=== PATIENT | female | born 1960 | race Caucasian/White ===

== ENCOUNTER 2018-04-29 10:34 | Emergency (ER) | payer MEDICARE, MEDICAID ==
[~2018-04-29] VITALS: Ht 165.1 cm; Wt 63.6 kg
[2018-04-29] MEDS ORDERED: LIDOcaine 1.5% w/epinephrine 1:200,000 5ml ampul IJ ONE (11:20)
[2018-04-29] MEDS ORDERED: LIDOcaine 1% w/epiNEPHrine 1:200,000 30ml vial IJ ONE (11:25)
[2018-04-29] MEDS ORDERED: SULF1TAB49 PO (12:00)
[2018-04-29] MEDS ORDERED: CEPH-572 PO (12:00)
[2018-04-29 12:56] VITALS: BP 100/61
== END 2018-04-29 12:58 | disposition home or self-care (01) ==
LOC: ER 10:35
DX: L02.413 Cutaneous abscess of right upper limb (principal)
CPT/HCPCS: 10061; 87070; 87077; 87186; 99284; J3490

== ENCOUNTER 2018-05-07 09:27 | Emergency (ER) | payer MEDICARE, MEDICAID ==
[~2018-05-07] VITALS: Ht 170.2 cm; Wt 63.0 kg
[~2018-05-07 09:27] MED LIST: CEPH-572 PO; SULF1TAB49 PO
[2018-05-07] MEDS ORDERED: normal saline 1000ML IV soln IVB ONE (10:05)
[2018-05-07] MEDS ORDERED: ziprasidone IM 20mg inj **IM only IM ONE (11:20)
[2018-05-07 11:38] LABS: CLARITY,URINE SLIGHTLY CLOUDY (Clear); COLOR,URINE YELLOW (Yellow); GLUCOSE, URINE NEGATIVE (Neg); KETONES,URINE TRACE mg/dl (Neg); LEUKOCYTE ESTERASE ,URINE NEGATIVE (Neg); NITRITES, URINE NEGATIVE (Neg); OCCULT BLOOD,URINE NEGATIVE (Neg); PROTEIN,URINE NEGATIVE (Neg); UROBILINOGEN,URINE 0.2 E.U/dL (0.2-1.0)
[2018-05-07 11:45] LABS: HEMATOCRIT 29.9 % (35.0-45.0); HEMOGLOBIN 9.9 g/dl (12.0-16.0); MEAN CORPUSCULAR HEMOGLOBIN 30.1 PG (27.0-31.0); MEAN CORPUSCULAR HGB CONC 33.2 % (33.0-36.5); MEAN CORPUSCULAR VOLUME 90.6 FL (78-98); MEAN PLATELET VOLUME 6.7 FL (7.4-10.4); PLATELET COUNT 569 X10'3 (140-440); RED CELL DISTRIBUTION WIDTH 14.7 % (11.5-14.5)
[2018-05-07 11:47] LABS: URINE AMPHETAMINE SCREEN NEGATIVE (Neg); URINE BARBITUATE SCREEN NEGATIVE (Neg); URINE BENZODIAZEPINES SCREEN NEGATIVE (Neg); URINE CANNABINOID SCREEN NEGATIVE (Neg); URINE COCAINE SCREEN NEGATIVE (Neg); URINE METHADONE SCREEN NEGATIVE (Neg); URINE OPIATE SCREEN POSITIVE (Neg); URINE PHENCYCLIDINE SCREEN NEGATIVE (Neg)
[2018-05-07 11:48] LABS: UA COLLECTION TYPE STRAIGHT CATH
[2018-05-07 11:52] LABS: BACTERIA,URINE NONE SEEN /HPF (Neg); RBC,URINE NONE SEEN /HPF (0-2); SQUAMOUS EPITHELIAL CELL,UR NONE SEEN /LPF (FEW); URIC ACID CRYSTALS 3+ /HPF (NEGATIVE); WBC,URINE NONE SEEN /HPF (0-4)
[2018-05-07 12:02] LABS: ALANINE AMINOTRANSFERASE 12 U/L (12-78); ALBUMIN/GLOBULIN RATIO 0.3 (1.1-1.5); ALKALINE PHOSPHATASE 86 IU/L (46-116); ANION GAP 9 (8-16); ASPARTATE AMINO TRANSFERASE 36 U/L (10-37); BILIRUBIN,TOTAL 0.2 MG/DL (0.1-1.0); BLOOD UREA NITROGEN 67 MG/DL (7-18); BUN/CREATININE RATIO 24.4 (6.6-38.0); CHLORIDE 95 MMOL/L (99-107); CREATININE 2.75 MG/DL (0.40-0.90); GLUCOSE 67 MG/DL (70-104); POTASSIUM 4.9 MMOL/L (3.5-5.1); SODIUM 134 MMOL/L (135-145); TOTAL CARBON DIOXIDE 29.9 MMOL/L (24-32); eGFR 18 ML/MIN
[2018-05-07 12:05] LABS: LACTIC SEPSIS 1.5 MMOL/L (0.4-2.0)
[2018-05-07 12:06] LABS: AMMONIA < 10 UMOL/L (11-32); TROPONIN I < 0.04 NG/ML (0.0-0.05)
[2018-05-07 12:08] LABS: ETHANOL < 0.010 GM/DL (0.0-0.010)
[2018-05-07 12:17] LABS: WHITE BLOOD COUNT 7.2 X10'3 (4.5-11.0)
[2018-05-07 12:25] LABS: TOTAL CELLS COUNTED 100
[2018-05-07 12:26] LABS: PLATELET ESTIMATE INCREASED; ROULEAUX 1+
[2018-05-07] MEDS ORDERED: normal saline 1000ml 1,000 ML IVB ONE (12:35)
[2018-05-07] MEDS: dextrose 5%-normal saline 1,000 ML IV SCH ×2 (14:30→16:40)
[2018-05-07 16:55] VITALS: BP 95/49
== END 2018-05-07 17:19 ==
LOC: ER 09:28
DX: G30.0 Alzheimer's disease with early onset (principal); N17.9 Acute kidney failure, unspecified; E86.0 Dehydration; Z79.2 Long term (current) use of antibiotics
CPT/HCPCS: 36415; 80053; 80305; 80320; 81001; 82140; 82948; 83605; 84484; 85025; 96360; 96361; 96372; 99285; J3486; J7030; P9612

== ENCOUNTER 2018-09-09 15:37 | Inpatient (IN) | payer MEDICARE, MEDICAID ==
[~2018-09-09] VITALS: Ht 157.5 cm; Wt 58.0 kg
[2018-09-09] MEDS ORDERED: normal saline 1000ML IV soln IVB ONE (16:35)
[2018-09-09] MEDS ORDERED: vancomycin/NS 1 GM ADD-VANTAGE 250 ML IV ONE (17:15)
[2018-09-09] MEDS ORDERED: ceFAZolin 1GM/D5W- ADD-VANTAGE 50 ML IV ONE (17:15)
[2018-09-09] MEDS ORDERED: LORazepam 2 mg/ml vial IM ONE (17:25)
[2018-09-09] MEDS ORDERED: potassium Cl 20 mEq SR tablet PO PRN ×2 (17:30)
[2018-09-09] MEDS ORDERED: magnesium 4gm in 100ml NS 100 ML IV PRN (17:30)
[2018-09-09] MEDS ORDERED: potassium Cl 40MEQ/NS 500ml 500 ML IV PRN ×2 (17:30)
[2018-09-09] MEDS ORDERED: ondansetron/PF 4mg/2ml inj IV PRN (17:30)
[2018-09-09] MEDS ORDERED: magnesium 2GM in 50ml NS 50 ML IV PRN (17:30)
[2018-09-09] MEDS ORDERED: mag hydrox/Alum hydrox/simeth 30ml oral suspension PO PRN (17:30)
[2018-09-09] MEDS ORDERED: morphine 4 MG/ML inj SYRINge IV PRN ×2 (17:30)
[2018-09-09] MEDS ORDERED: acetaminophen 325mg tablet PO PRN (17:30)
[2018-09-09] MEDS ORDERED: magnesium hydroxide 30ml (MOM) UD suspension PO PRN (17:30)
[2018-09-09] MEDS ORDERED: LEVO25TA7 PO (20:47)
[2018-09-09] MEDS ORDERED: GABA600T13 PO (20:47)
[2018-09-09] MEDS ORDERED: CITA10TA9 PO (20:47)
[2018-09-09] MEDS ORDERED: OLAN10TA19 PO (20:47)
[2018-09-09] MEDS ORDERED: VALP250C44 PO (20:47)
[2018-09-09] MEDS ORDERED: PRAV40TA3 PO (20:47)
[2018-09-09] MEDS ORDERED: MELO-102 PO (20:47)
[2018-09-09] MEDS ORDERED: CELE-85 PO (20:47)
--- NOTE | 2018-09-09 22:08 | NUR ---
PT IN ROOM 4018. HAVEN'T RECEIVE REPORT. WILL CALL ER.
[2018-09-09 22:15] VITALS: BP 115/37
[2018-09-10] VITALS (17 sets, daily range): BP systolic 63–124; BP diastolic 34–94
[2018-09-10] MEDS ORDERED: LORazepam 2 mg/ml vial IV ONE (00:55)
[2018-09-10] MEDS: ceFAZolin 1GM/D5W- ADD-VANTAGE 50 ML IV SCH ×4 (01:17→23:58)
[2018-09-10 01:38] LABS: BASOPHILS % (AUTO) 0.4 % (0-1); EOSINOPHILS # (AUTO) 0.1 X10'3 (0-0.9); EOSINOPHILS % (AUTO) 1.4 % (0-6); HEMATOCRIT 28.3 % (35.0-45.0); HEMOGLOBIN 9.4 g/dl (12.0-16.0); LYMPHOCYTES # (AUTO) 1.4 X10'3 (1.1-4.8); LYMPHOCYTES % (AUTO) 31.9 % (21-51); MEAN CORPUSCULAR HEMOGLOBIN 29.7 PG (27.0-31.0); MEAN CORPUSCULAR HGB CONC 33.3 g/dL (33.0-36.5); MEAN CORPUSCULAR VOLUME 89.4 FL (78-98); MEAN PLATELET VOLUME 6.9 FL (7.4-10.4); MONOCYTES # (AUTO) 0.8 X10'3 (0-0.9); MONOCYTES % (AUTO) 19.5 % (2-12); NEUTROPHILS % (AUTO) 46.8 % (42-75); PLATELET COUNT 254 X10'3 (140-440); RED BLOOD COUNT 3.16 X10'6 (4.20-5.60); RED CELL DISTRIBUTION WIDTH 16.9 % (11.5-14.5); WHITE BLOOD COUNT 4.4 X10'3 (4.5-11.0)
[2018-09-10 01:48] LABS: ALANINE AMINOTRANSFERASE 10 U/L (12-78); ALBUMIN 2.1 G/DL (3.4-5.0); ALBUMIN/GLOBULIN RATIO 0.4 (1.1-1.5); ALKALINE PHOSPHATASE 87 IU/L (46-116); ANION GAP 7 (8-16); ASPARTATE AMINO TRANSFERASE 14 U/L (10-37); BILIRUBIN,TOTAL 0.1 MG/DL (0.1-1.0); BLOOD UREA NITROGEN 36 MG/DL (7-18); BUN/CREATININE RATIO 31.3 (6.6-38.0); CALCIUM 9.2 MG/DL (8.5-10.1); CHLORIDE 107 MMOL/L (99-107); CREATININE 1.15 MG/DL (0.40-0.90); GLUCOSE 83 MG/DL (70-104); MAGNESIUM 2.2 MG/DL (1.5-2.4); POTASSIUM 4.2 MMOL/L (3.5-5.1); SODIUM 143 MMOL/L (135-145); TOTAL CARBON DIOXIDE 28.7 MMOL/L (24-32); TOTAL PROTEIN 7.5 G/DL (6.4-8.2); eGFR 48 ML/MIN
--- NOTE | 2018-09-10 06:37 | NUR ---
Problems reprioritized. Patient report given, questions answered & plan of care reviewed with MORTEZA MONTELONGO AND MORTEZA DO.
[2018-09-10 06:45] LABS: PROTHROMBIN TIME 10.4 SECONDS (9.0-12.0)
[2018-09-10] MEDS: enoxaparin 40mg/0.4ml syringe SQ SCH (06:52)
[2018-09-10] MEDS: olanzapine 10mg tablet PO SCH (07:25)
[2018-09-10] MEDS: levoTHYROXINE 25mcg tablet PO SCH (07:25)
[2018-09-10] MEDS: CITALOpram 10mg tablet PO SCH (07:26)
[2018-09-10] MEDS: pravastatin 40mg tablet PO SCH (07:27)
[2018-09-10] MEDS: valproic acid 250mg capsule PO SCH ×2 (07:27→19:40)
[2018-09-10] MEDS: gabapentin 300mg capsule PO SCH ×2 (07:27→19:40)
[2018-09-10] MEDS: K and/or MAG REPLACEMENT MC SCH (08:00)
[2018-09-10] MEDS: ringers solution, lacted 1,000 ML IV SCH (10:50)
[2018-09-10] MEDS ORDERED: sevoflurane 250ml liquid IH ONE (15:42)
[2018-09-10] MEDS ORDERED: propofol inj 20 ML IV ONE (15:44)
[2018-09-10] MEDS ORDERED: fentaNYL/PF 50MCG/1 ML 2ML syringe ONE (15:44)
--- NOTE | 2018-09-10 15:58 | NUR ---
Failed attempts x 2 to left upper arm for extended PIV using ultrasound and 3 nurses to stabilize arm and minimize kicks from patient. Patient uncooperative. Addendum: 09/10/18 at 1601 by Griselda Diez RN Amended: Links added.
[2018-09-10] MEDS ORDERED: ePHEDrine 50MG/ML INJ. ONE (16:05)
[2018-09-10] MEDS ORDERED: ringers solution, lacted 1,000 ML IV SCH (16:46)
[2018-09-10] MEDS ORDERED: ondansetron/PF 4mg/2ml inj IV PRN (16:50)
[2018-09-10] MEDS ORDERED: meperidine/PF 25mg/ml syringe IV PRN ×3 (16:50)
[2018-09-10] MEDS ORDERED: morphine 4 MG/ML inj SYRINge IV PRN ×2 (16:50)
[2018-09-10] MEDS ORDERED: proCHLORperazine 10 MG/2 ml inj IV PRN (16:50)
--- NOTE | 2018-09-10 17:12 | NUR ---
Received from OR via ORTHO BED, accompanied by Anesthesiologist DR RAMSEY and report given by Anesthesiolgist. PT IS S/P I AND D OF RIGHT SHOULDER, GENERAL ANESTH, PT PLACED ON O2 AND MONITOR, PT HAS RIGHT SHOULDER WRAP COVERING DRESSING, WITH ICE PACK IN PLACE, CDI, WOUND VAC ATTACHED WITH 125 MMHG SUCTION, DENIES ANY PAIN OR NAUSEA AT THIS TIME WILL CONT TO ASSESS. GOOD RADIAL PULSES BILAT, WILL CONT TO ASSESS.
[2018-09-10] MEDS ORDERED: HYDROmorphone inj. 0.5 MG/0.5 ML DISP.SYRIN IV PRN (17:25)
[2018-09-10] MEDS ORDERED: oxyCODONE IR 5mg (immed. release) tablet PO PRN (17:25)
--- NOTE | 2018-09-10 18:17 | NUR ---
Problems reprioritized. Patient report given, questions answered & plan of care reviewed with brody PRO.
--- NOTE | 2018-09-10 18:30 | NUR ---
Patient in room ORTHO 4018. I have received report from REGINALDRN AND ERNESTINARN and had the opportunity to ask questions and assume patient care.
[2018-09-10] MEDS: vancomycin/NS 1 GM ADD-VANTAGE 250 ML IV SCH (18:48)
[2018-09-10] MEDS: ketorolac tromethamine 15mg/ml inj. IV SCH (19:40)
[2018-09-10] MEDS: lactobacillus rhamnosus 10,000 MMU CELLS/CAPSULE PO SCH (19:41)
[2018-09-10] MEDS: acetaminophen 325mg tablet PO SCH (19:41)
[2018-09-10] MEDS: potassium cl 20mEq in 1/2 NS 1,000 ML IV SCH (19:43)
[2018-09-11] MEDS ORDERED: normal saline 250ml IV soln 250 ML IV ONE (00:45)
--- NOTE | 2018-09-11 00:46 | NUR ---
AT 2250 PT'S BP 68/38 HR 70, PT WAS ASLEEP. NS BOLUS 259CC GIVEN. @2317 123/78 HR85, @2323 101/70 HR77 PT WAS AWAKE. WILL CONTINUE TO MONITOR.
[2018-09-11] MEDS: acetaminophen 325mg tablet PO SCH ×4 (01:36→20:33)
[2018-09-11] MEDS: ketorolac tromethamine 15mg/ml inj. IV SCH ×3 (01:36→15:53)
[2018-09-11 02:00] VITALS: BP 99/53
[2018-09-11 06:00] VITALS: BP 104/49
[2018-09-11] MEDS: ringers solution, lacted 1,000 ML IV SCH (06:50)
--- NOTE | 2018-09-11 06:53 | NUR ---
Patient in room ORTHO 4018. I have received report from Marlin PRO and had the opportunity to ask questions and assume patient care.
[2018-09-11] MEDS: potassium cl 20mEq in 1/2 NS 1,000 ML IV SCH ×3 (06:55→17:07)
[2018-09-11 07:41] LABS: BASOPHILS % (AUTO) 0.3 % (0-1); EOSINOPHILS # (AUTO) 0.1 X10'3 (0-0.9); EOSINOPHILS % (AUTO) 1.6 % (0-6); HEMATOCRIT 23.4 % (35.0-45.0); HEMOGLOBIN 7.8 g/dl (12.0-16.0); LYMPHOCYTES # (AUTO) 1.5 X10'3 (1.1-4.8); LYMPHOCYTES % (AUTO) 34.9 % (21-51); MEAN CORPUSCULAR HEMOGLOBIN 29.6 PG (27.0-31.0); MEAN CORPUSCULAR HGB CONC 33.2 g/dL (33.0-36.5); MEAN CORPUSCULAR VOLUME 89.3 FL (78-98); MEAN PLATELET VOLUME 6.7 FL (7.4-10.4); MONOCYTES # (AUTO) 0.7 X10'3 (0-0.9); MONOCYTES % (AUTO) 17.2 % (2-12); PLATELET COUNT 249 X10'3 (140-440); RED BLOOD COUNT 2.62 X10'6 (4.20-5.60); RED CELL DISTRIBUTION WIDTH 16.9 % (11.5-14.5); WHITE BLOOD COUNT 4.3 X10'3 (4.5-11.0)
[2018-09-11 07:52] LABS: ALANINE AMINOTRANSFERASE 8 U/L (12-78); ALBUMIN/GLOBULIN RATIO 0.4 (1.1-1.5); ALKALINE PHOSPHATASE 71 IU/L (46-116); ANION GAP 8 (8-16); ASPARTATE AMINO TRANSFERASE 17 U/L (10-37); BILIRUBIN,TOTAL 0.1 MG/DL (0.1-1.0); BLOOD UREA NITROGEN 28 MG/DL (7-18); BUN/CREATININE RATIO 25.9 (6.6-38.0); CALCIUM 8.7 MG/DL (8.5-10.1); CHLORIDE 106 MMOL/L (99-107); CREATININE 1.08 MG/DL (0.40-0.90); GLUCOSE 86 MG/DL (70-104); POTASSIUM 4.2 MMOL/L (3.5-5.1); SODIUM 141 MMOL/L (135-145); TOTAL CARBON DIOXIDE 26.6 MMOL/L (24-32); eGFR 52 ML/MIN
[2018-09-11] MEDS: levoTHYROXINE 25mcg tablet PO SCH (08:00)
[2018-09-11] MEDS: CITALOpram 10mg tablet PO SCH (08:00)
[2018-09-11] MEDS: valproic acid 250mg capsule PO SCH ×2 (08:00→20:33)
[2018-09-11] MEDS: gabapentin 300mg capsule PO SCH ×2 (08:00→20:33)
[2018-09-11] MEDS: olanzapine 10mg tablet PO SCH (08:00)
[2018-09-11] MEDS: pravastatin 40mg tablet PO SCH (08:00)
[2018-09-11] MEDS: lactobacillus rhamnosus 10,000 MMU CELLS/CAPSULE PO SCH ×2 (08:00→20:33)
[2018-09-11] MEDS: K and/or MAG REPLACEMENT MC SCH (08:00)
--- NOTE | 2018-09-11 08:00 | NUR ---
unable to give patient medications and assess, patient is very combative and restistant to care, will continue to monitor and tyr again later
[2018-09-11] MEDS: enoxaparin 40mg/0.4ml syringe SQ SCH (08:38)
[2018-09-11] MEDS: ceFAZolin 1GM/D5W- ADD-VANTAGE 50 ML IV SCH ×3 (08:40→23:08)
[2018-09-11] MEDS: haloperidol lactate 5mg/ml inj IM PRN (09:13)
[2018-09-11 10:00] VITALS: BP 109/57
[2018-09-11 14:06] LABS: HEMATOCRIT 23.5 % (35.0-45.0); HEMOGLOBIN 7.6 g/dl (12.0-16.0); MEAN CORPUSCULAR HEMOGLOBIN 28.6 PG (27.0-31.0); MEAN CORPUSCULAR HGB CONC 32.4 g/dL (33.0-36.5); MEAN CORPUSCULAR VOLUME 88.2 FL (78-98); MEAN PLATELET VOLUME 6.6 FL (7.4-10.4); PLATELET COUNT 260 X10'3 (140-440); RED BLOOD COUNT 2.67 X10'6 (4.20-5.60); RED CELL DISTRIBUTION WIDTH 16.5 % (11.5-14.5); WHITE BLOOD COUNT 4.8 X10'3 (4.5-11.0)
[2018-09-11] MEDS: oxyCODONE IR 5mg (immed. release) tablet PO PRN ×2 (14:23→23:06)
[2018-09-11] MEDS ORDERED: LIDOcaine 1%/PF 5ML 10 MG/ML VIAL ONE (14:46)
[2018-09-11] MEDS: vancomycin/NS 1 GM ADD-VANTAGE 250 ML IV SCH (17:54)
--- NOTE | 2018-09-11 18:00 | NUR ---
Patient refused 1800 vitals.
--- NOTE | 2018-09-11 18:29 | NUR ---
Problems reprioritized. Patient report given, questions answered & plan of care reviewed with Don PRO.
--- NOTE | 2018-09-11 18:30 | NUR ---
Patient in room ORTHO 4018. I have received report from Wei Arellano and had the opportunity to ask questions and assume patient care.
--- NOTE | 2018-09-11 22:10 | NUR ---
Patient pulled port off groshong line, Hemostats placed, MD notified. He will come and assess pt.
--- NOTE | 2018-09-11 22:19 | NUR ---
MD came to look at line. He said to redress the site and if it has come out at all, take a chest xray.
--- NOTE | 2018-09-11 22:58 | NUR ---
I redressed the groshong, and the stitches were still in place. It did not appear to have come out at all, therefore no chest xray will be taken, per MD.
[2018-09-12] VITALS (23 sets, daily range): BP systolic 100–160; BP diastolic 53–88
[2018-09-12] MEDS: potassium cl 20mEq in 1/2 NS 1,000 ML IV SCH ×2 (01:23→05:59)
[2018-09-12] MEDS: acetaminophen 325mg tablet PO SCH ×3 (01:58→14:00)
[2018-09-12] MEDS: ringers solution, lacted 1,000 ML IV SCH ×2 (02:50→22:50)
[2018-09-12] MEDS: oxyCODONE IR 5mg (immed. release) tablet PO PRN ×3 (05:53→21:36)
--- NOTE | 2018-09-12 06:35 | NUR ---
Problems reprioritized. Patient report given, questions answered & plan of care reviewed with MORTEZA Lemon.
[2018-09-12 07:03] LABS: BASOPHILS % (AUTO) 0.2 % (0-1); EOSINOPHILS # (AUTO) 0.1 X10'3 (0-0.9); LYMPHOCYTES # (AUTO) 1.7 X10'3 (1.1-4.8); LYMPHOCYTES % (AUTO) 43.5 % (21-51); MEAN CORPUSCULAR HEMOGLOBIN 29.3 PG (27.0-31.0); MEAN CORPUSCULAR HGB CONC 32.9 g/dL (33.0-36.5); MEAN CORPUSCULAR VOLUME 88.9 FL (78-98); MEAN PLATELET VOLUME 6.6 FL (7.4-10.4); MONOCYTES # (AUTO) 0.7 X10'3 (0-0.9); MONOCYTES % (AUTO) 17.1 % (2-12); NEUTROPHILS # (AUTO) 1.4 X10'3 (1.8-7.7); NEUTROPHILS % (AUTO) 37.2 % (42-75); PLATELET COUNT 281 X10'3 (140-440); RED BLOOD COUNT 2.24 X10'6 (4.20-5.60); RED CELL DISTRIBUTION WIDTH 16.8 % (11.5-14.5); WHITE BLOOD COUNT 3.8 X10'3 (4.5-11.0)
--- NOTE | 2018-09-12 07:07 | NUR ---
Patient in room ORTHO 4018. I have received report from Don PRO and had the opportunity to ask questions and assume patient care. Addendum: 09/12/18 at 1148 by Ion Curtis RN Pt getting restless and starting to pull at lines. Pt states she is in pain fromher right shoulder. Pain meds given.
[2018-09-12 07:09] LABS: HEMOGLOBIN 6.6 g/dl (12.0-16.0)
[2018-09-12 07:10] LABS: HEMATOCRIT 19.9 % (35.0-45.0)
[2018-09-12 07:12] LABS: ALANINE AMINOTRANSFERASE 9 U/L (12-78); ALBUMIN/GLOBULIN RATIO 0.4 (1.1-1.5); ALKALINE PHOSPHATASE 67 IU/L (46-116); ANION GAP 6 (8-16); ASPARTATE AMINO TRANSFERASE 18 U/L (10-37); BILIRUBIN,TOTAL 0.1 MG/DL (0.1-1.0); BLOOD UREA NITROGEN 20 MG/DL (7-18); BUN/CREATININE RATIO 20.4 (6.6-38.0); CALCIUM 8.6 MG/DL (8.5-10.1); CHLORIDE 108 MMOL/L (99-107); CREATININE 0.98 MG/DL (0.40-0.90); GLUCOSE 85 MG/DL (70-104); MAGNESIUM 2.1 MG/DL (1.5-2.4); POTASSIUM 4.6 MMOL/L (3.5-5.1); SODIUM 142 MMOL/L (135-145); TOTAL CARBON DIOXIDE 27.6 MMOL/L (24-32); TOTAL PROTEIN 6.7 G/DL (6.4-8.2); eGFR 58 ML/MIN
[2018-09-12] MEDS: K and/or MAG REPLACEMENT MC SCH (07:58)
[2018-09-12] MEDS: olanzapine 10mg tablet PO SCH (08:00)
[2018-09-12] MEDS: CITALOpram 10mg tablet PO SCH (08:00)
[2018-09-12] MEDS: lactobacillus rhamnosus 10,000 MMU CELLS/CAPSULE PO SCH ×2 (08:00→21:36)
[2018-09-12] MEDS: pravastatin 40mg tablet PO SCH (08:00)
[2018-09-12] MEDS: levoTHYROXINE 25mcg tablet PO SCH (08:00)
[2018-09-12] MEDS: valproic acid 250mg capsule PO SCH ×2 (08:00→21:36)
[2018-09-12] MEDS: gabapentin 300mg capsule PO SCH ×2 (08:00→21:36)
[2018-09-12] MEDS: ceFAZolin 1GM/D5W- ADD-VANTAGE 50 ML IV SCH ×2 (08:14→16:43)
[2018-09-12] MEDS: enoxaparin 40mg/0.4ml syringe SQ SCH (08:15)
[2018-09-12] MEDS: haloperidol lactate 5mg/ml inj IM PRN (11:37)
[2018-09-12] MEDS: HYDROmorphone 1 mg/ml syringe IV PRN (11:42)
--- NOTE | 2018-09-12 16:56 | NUR ---
Pt upset she is going to surgery. She is screaming "everyone can go to hell" RN spoke with pt and she calmed down and apologized.
[2018-09-12] MEDS ORDERED: ringers solution, lacted 1,000 ML IV SCH (17:13)
[2018-09-12] MEDS ORDERED: labetalol 20mg/4ml (5mg/ml) syringe IV PRN (17:15)
[2018-09-12] MEDS ORDERED: ondansetron/PF 4mg/2ml inj IV PRN (17:15)
[2018-09-12] MEDS ORDERED: fentaNYL/PF 50MCG/1 ML 2ML syringe IV PRN ×2 (17:15)
[2018-09-12] MEDS ORDERED: hydrALAZINE 20mg/ml inj. IV PRN (17:15)
[2018-09-12] MEDS ORDERED: morphine 4 MG/ML inj SYRINge IV PRN ×2 (17:15)
[2018-09-12] MEDS ORDERED: acetaminophen 325mg tablet PO PRN (17:25)
[2018-09-12] MEDS ORDERED: VANCOMYCIN LEVEL IV ONE (17:30)
[2018-09-12] MEDS: vancomycin/NS 1 GM ADD-VANTAGE 250 ML IV SCH (18:12)
[2018-09-12] MEDS ORDERED: sevoflurane 250ml liquid IH ONE (18:32)
[2018-09-12] MEDS ORDERED: etomidate 2mg/ml inj. ONE (18:34)
[2018-09-12] MEDS ORDERED: fentaNYL/PF 50MCG/1 ML 2ML syringe ONE (18:34)
[2018-09-12] MEDS ORDERED: midazolam 2 mg/2 ml injection ONE (18:34)
--- NOTE | 2018-09-12 18:39 | NUR ---
Patient in room ORTHO 4018. I have received report from MORTEZA Lemon and had the opportunity to ask questions and assume patient care.
[2018-09-12] MEDS ORDERED: labetalol 20mg/4ml (5mg/ml) syringe IV ONE (19:34)
--- NOTE | 2018-09-12 20:05 | NUR ---
Received from OR via , accompanied by Anesthesiologist DR RENNER and report given by Anesthesiolgist. AWAKENS TO VOICE. VITALS STABLE. DRESSING DI. MAGALY PAIN. RUE IN SIMPLE SLING.
--- NOTE | 2018-09-12 20:35 | NUR ---
Report called to receiving nurse. Transferred via BED Belongings . Special Issues communicated to receiving nurse. AWAKE AND MAGALY PAIN. VITALS STABLE. DRESSING DI. TO ORTHO RM [id number] AT THIS TIME.
--- NOTE | 2018-09-12 20:38 | NUR ---
Patient in room ORTHO 4018. I have received report from MORTEZA Zambrano and had the opportunity to ask questions and assume patient care.
--- NOTE | 2018-09-12 22:00 | NUR ---
Pt. pull her AMENA out by accident .We dressed with 4/4 and shoulder rap.Continue with pt. care.
[2018-09-13] VITALS (7 sets, daily range): BP systolic 110–168; BP diastolic 44–82
[2018-09-13] MEDS: ceFAZolin 1GM/D5W- ADD-VANTAGE 50 ML IV SCH ×2 (00:09→10:24)
[2018-09-13] MEDS: oxyCODONE IR 5mg (immed. release) tablet PO PRN ×4 (02:34→17:32)
[2018-09-13] MEDS: ringers solution, lacted 1,000 ML IV SCH (04:56)
--- NOTE | 2018-09-13 06:36 | NUR ---
Problems reprioritized. Patient report given, questions answered & plan of care reviewed with MORTEZA Lemon.
[2018-09-13 07:36] LABS: BASOPHILS % (AUTO) 0.5 % (0-1); EOSINOPHILS % (AUTO) 0.9 % (0-6); HEMATOCRIT 31.8 % (35.0-45.0); HEMOGLOBIN 10.6 g/dl (12.0-16.0); LYMPHOCYTES # (AUTO) 1.8 X10'3 (1.1-4.8); MEAN CORPUSCULAR HEMOGLOBIN 29.3 PG (27.0-31.0); MEAN CORPUSCULAR HGB CONC 33.4 g/dL (33.0-36.5); MEAN CORPUSCULAR VOLUME 87.5 FL (78-98); MEAN PLATELET VOLUME 6.5 FL (7.4-10.4); MONOCYTES # (AUTO) 0.8 X10'3 (0-0.9); MONOCYTES % (AUTO) 17.7 % (2-12); NEUTROPHILS # (AUTO) 1.8 X10'3 (1.8-7.7); NEUTROPHILS % (AUTO) 39.9 % (42-75); PLATELET COUNT 293 X10'3 (140-440); RED BLOOD COUNT 3.64 X10'6 (4.20-5.60); RED CELL DISTRIBUTION WIDTH 15.2 % (11.5-14.5); WHITE BLOOD COUNT 4.4 X10'3 (4.5-11.0)
[2018-09-13] MEDS: levoTHYROXINE 25mcg tablet PO SCH ×2 (08:00→10:25)
[2018-09-13] MEDS: gabapentin 300mg capsule PO SCH ×3 (08:00→19:52)
[2018-09-13] MEDS: olanzapine 10mg tablet PO SCH ×2 (08:00→10:25)
[2018-09-13] MEDS: pravastatin 40mg tablet PO SCH ×2 (08:00→10:25)
[2018-09-13] MEDS: valproic acid 250mg capsule PO SCH ×3 (08:00→19:52)
[2018-09-13] MEDS: K and/or MAG REPLACEMENT MC SCH (08:00)
[2018-09-13] MEDS: lactobacillus rhamnosus 10,000 MMU CELLS/CAPSULE PO SCH ×3 (08:00→19:52)
[2018-09-13] MEDS: CITALOpram 10mg tablet PO SCH ×2 (08:00→10:25)
[2018-09-13 08:05] LABS: ALANINE AMINOTRANSFERASE 10 U/L (12-78); ALBUMIN 2.3 G/DL (3.4-5.0); ALBUMIN/GLOBULIN RATIO 0.4 (1.1-1.5); ALKALINE PHOSPHATASE 74 IU/L (46-116); ANION GAP 9 (8-16); ASPARTATE AMINO TRANSFERASE 22 U/L (10-37); BILIRUBIN,TOTAL 0.2 MG/DL (0.1-1.0); BLOOD UREA NITROGEN 9 MG/DL (7-18); BUN/CREATININE RATIO 11.1 (6.6-38.0); CALCIUM 9.1 MG/DL (8.5-10.1); CHLORIDE 103 MMOL/L (99-107); CREATININE 0.81 MG/DL (0.40-0.90); GLUCOSE 82 MG/DL (70-104); MAGNESIUM 1.8 MG/DL (1.5-2.4); POTASSIUM 3.8 MMOL/L (3.5-5.1); SODIUM 141 MMOL/L (135-145); TOTAL PROTEIN 7.5 G/DL (6.4-8.2); eGFR 72 ML/MIN
[2018-09-13] MEDS: enoxaparin 40mg/0.4ml syringe SQ SCH (10:26)
[2018-09-13] MEDS: haloperidol lactate 5mg/ml inj IM PRN (14:25)
[2018-09-13] MEDS: vancomycin/NS 1 GM ADD-VANTAGE 250 ML IV SCH (17:32)
--- NOTE | 2018-09-13 17:33 | NUR ---
DR. Roa spoke with mother and pt is a full code. Mother is POA. DNR band removed from pt wrist.
[2018-09-13 17:54] LABS: HIV ANTIBODY 1&2 RAPID NON-REACTIVE (Neg)
[2018-09-14] MEDS: oxyCODONE IR 5mg (immed. release) tablet PO PRN ×5 (00:01→22:10)
[2018-09-14] MEDS: ringers solution, lacted 1,000 ML IV SCH (03:05)
[2018-09-14 05:21] LABS: BASOPHILS % (AUTO) 0.4 % (0-1); EOSINOPHILS % (AUTO) 0.3 % (0-6); HEMATOCRIT 27.6 % (35.0-45.0); HEMOGLOBIN 9.4 g/dl (12.0-16.0); LYMPHOCYTES # (AUTO) 1.8 X10'3 (1.1-4.8); LYMPHOCYTES % (AUTO) 41.6 % (21-51); MEAN CORPUSCULAR HEMOGLOBIN 30.1 PG (27.0-31.0); MEAN CORPUSCULAR VOLUME 88.4 FL (78-98); MEAN PLATELET VOLUME 6.5 FL (7.4-10.4); NEUTROPHILS # (AUTO) 1.6 X10'3 (1.8-7.7); NEUTROPHILS % (AUTO) 35.7 % (42-75); PLATELET COUNT 301 X10'3 (140-440); RED BLOOD COUNT 3.12 X10'6 (4.20-5.60); RED CELL DISTRIBUTION WIDTH 14.9 % (11.5-14.5); WHITE BLOOD COUNT 4.4 X10'3 (4.5-11.0)
[2018-09-14 05:29] LABS: ALANINE AMINOTRANSFERASE 11 U/L (12-78); ALBUMIN 2.1 G/DL (3.4-5.0); ALBUMIN/GLOBULIN RATIO 0.4 (1.1-1.5); ALKALINE PHOSPHATASE 68 IU/L (46-116); ANION GAP 4 (8-16); ASPARTATE AMINO TRANSFERASE 21 U/L (10-37); BILIRUBIN,TOTAL 0.3 MG/DL (0.1-1.0); BLOOD UREA NITROGEN 7 MG/DL (7-18); CALCIUM 8.5 MG/DL (8.5-10.1); CHLORIDE 103 MMOL/L (99-107); GLUCOSE 85 MG/DL (70-104); MAGNESIUM 1.7 MG/DL (1.5-2.4); POTASSIUM 3.5 MMOL/L (3.5-5.1); SODIUM 140 MMOL/L (135-145); TOTAL CARBON DIOXIDE 32.6 MMOL/L (24-32); TOTAL PROTEIN 6.9 G/DL (6.4-8.2); eGFR 86 ML/MIN
[2018-09-14 06:00] VITALS: BP 129/61
--- NOTE | 2018-09-14 06:00 | NUR ---
Patient in room ORTHO 4018. I have received report from Pat Reese RN and had the opportunity to ask questions and assume patient care.
--- NOTE | 2018-09-14 06:25 | NUR ---
Problems reprioritized. Patient report given, questions answered & plan of care reviewed with MORTEZA Perrin.
[2018-09-14] MEDS: K and/or MAG REPLACEMENT MC SCH (08:00)
[2018-09-14] MEDS: lactobacillus rhamnosus 10,000 MMU CELLS/CAPSULE PO SCH ×2 (09:16→19:53)
[2018-09-14] MEDS: levoTHYROXINE 25mcg tablet PO SCH (09:16)
[2018-09-14] MEDS: pravastatin 40mg tablet PO SCH (09:17)
[2018-09-14] MEDS: olanzapine 10mg tablet PO SCH (09:17)
[2018-09-14] MEDS: gabapentin 300mg capsule PO SCH ×2 (09:17→19:53)
[2018-09-14] MEDS: valproic acid 250mg capsule PO SCH ×2 (09:17→19:53)
[2018-09-14] MEDS: CITALOpram 10mg tablet PO SCH (09:18)
[2018-09-14] MEDS: enoxaparin 40mg/0.4ml syringe SQ SCH (09:18)
[2018-09-14 10:00] VITALS: BP_SYST 105; BP_SYST 134; BP_DIAS 62; BP_DIAS 65
[2018-09-14] MEDS: vancomycin/NS 1 GM ADD-VANTAGE 250 ML IV SCH (17:40)
[2018-09-14 18:00] VITALS: BP 104/59
[2018-09-14 22:00] VITALS: BP 115/48
[2018-09-15] MEDS: HYDROmorphone 1 mg/ml syringe IV PRN (00:37)
[2018-09-15] MEDS: oxyCODONE IR 5mg (immed. release) tablet PO PRN ×2 (05:16→08:53)
[2018-09-15 06:00] VITALS: BP 104/59
--- NOTE | 2018-09-15 06:36 | NUR ---
Problems reprioritized. Patient report given, questions answered & plan of care reviewed with MORTEZA Reyes.
[2018-09-15] MEDS: K and/or MAG REPLACEMENT MC SCH (08:00)
[2018-09-15] MEDS: olanzapine 10mg tablet PO SCH (08:51)
[2018-09-15] MEDS: levoTHYROXINE 25mcg tablet PO SCH (08:51)
[2018-09-15] MEDS: enoxaparin 40mg/0.4ml syringe SQ SCH (08:51)
[2018-09-15] MEDS: pravastatin 40mg tablet PO SCH (08:51)
[2018-09-15] MEDS: gabapentin 300mg capsule PO SCH (08:51)
[2018-09-15] MEDS: lactobacillus rhamnosus 10,000 MMU CELLS/CAPSULE PO SCH (08:52)
[2018-09-15] MEDS: valproic acid 250mg capsule PO SCH (08:52)
[2018-09-15] MEDS: CITALOpram 10mg tablet PO SCH (08:52)
[2018-09-15 09:57] LABS: BASOPHILS % (AUTO) 0.6 % (0-1); EOSINOPHILS % (AUTO) 0.7 % (0-6); HEMATOCRIT 28.7 % (35.0-45.0); HEMOGLOBIN 9.5 g/dl (12.0-16.0); LYMPHOCYTES # (AUTO) 2.2 X10'3 (1.1-4.8); LYMPHOCYTES % (AUTO) 36.5 % (21-51); MEAN CORPUSCULAR HEMOGLOBIN 29.7 PG (27.0-31.0); MEAN CORPUSCULAR HGB CONC 33.1 g/dL (33.0-36.5); MEAN CORPUSCULAR VOLUME 89.6 FL (78-98); MEAN PLATELET VOLUME 6.5 FL (7.4-10.4); MONOCYTES # (AUTO) 0.9 X10'3 (0-0.9); MONOCYTES % (AUTO) 15.3 % (2-12); NEUTROPHILS # (AUTO) 2.8 X10'3 (1.8-7.7); NEUTROPHILS % (AUTO) 46.9 % (42-75); PLATELET COUNT 327 X10'3 (140-440); RED BLOOD COUNT 3.21 X10'6 (4.20-5.60); RED CELL DISTRIBUTION WIDTH 15.2 % (11.5-14.5); WHITE BLOOD COUNT 5.9 X10'3 (4.5-11.0)
[2018-09-15 10:07] LABS: ALANINE AMINOTRANSFERASE 9 U/L (12-78); ALBUMIN 2.1 G/DL (3.4-5.0); ALBUMIN/GLOBULIN RATIO 0.4 (1.1-1.5); ALKALINE PHOSPHATASE 69 IU/L (46-116); ANION GAP 7 (8-16); ASPARTATE AMINO TRANSFERASE 23 U/L (10-37); BILIRUBIN,TOTAL 0.3 MG/DL (0.1-1.0); BLOOD UREA NITROGEN 11 MG/DL (7-18); BUN/CREATININE RATIO 15.1 (6.6-38.0); CALCIUM 8.8 MG/DL (8.5-10.1); CHLORIDE 105 MMOL/L (99-107); CREATININE 0.73 MG/DL (0.40-0.90); GLUCOSE 98 MG/DL (70-104); POTASSIUM 3.4 MMOL/L (3.5-5.1); SODIUM 144 MMOL/L (135-145); TOTAL CARBON DIOXIDE 32.1 MMOL/L (24-32); TOTAL PROTEIN 6.9 G/DL (6.4-8.2); eGFR 82 ML/MIN
[2018-09-15] MEDS ORDERED: potassium Cl 20 mEq SR tablet PO STA (10:46)
[2018-09-15] MEDS: ringers solution, lacted 1,000 ML IV SCH (10:50)
[2018-09-15 11:05] LABS: ANISOCYTOSIS 1+; HYPOCHROMASIA 1+; PLATELET ESTIMATE NORMAL; POLYCHROMASIA 1+; ROULEAUX 1+; TOTAL CELLS COUNTED 100
--- NOTE | 2018-09-15 12:59 | NUR ---
Initial: Pt admit w/ L shoulder abscess s/p debridement w/ hx dementia AOx1. PO 25-50% pureed/thin diet; ensure HP TID added for additional needs. Dietary and MD notified. LBM 09/11. Will monitor for additional protein needs. Rec: 1. continue pureed/thin diet per DATA QUALITY CONSULTANT 2. ensure HP TIDWM 3. wt per rx Addendum: 09/15/18 at [address] Amended: Links added.
[2018-09-15] MEDS ORDERED: lactose-reduced food (Ensure High Protein) 237ml bottle PO SCH (13:00)
--- NOTE | 2018-09-15 16:57 | NUR ---
DC report given to Everett Chen intact DANIA chest. All belongings DCd wih pt, Samantha Cargo transferred pt YESSI in WC.
== END 2018-09-15 16:30 | DRG 463 ==
LOC: ER 15:38 → ED HOLD 17:26 → EDBEDREQ 21:38 → ORTHO 4S 21:55
PROVIDERS: ADMIT Family Medicine; ATTEND Family Medicine
PROC: 0RBJ0ZZ Excision of Right Shoulder Joint, Open Approach (ICD-10-PCS; 2018-09-10)
PROC: 0JBD0ZZ Excision of Right Upper Arm Subcutaneous Tissue and Fascia, Open Approach (ICD-10-PCS; principal; 2018-09-10 15:42)
PROC: 0JH63XZ Insertion of Tunneled Vascular Access Device into Chest Subcutaneous Tissue and Fascia, Percutaneous Approach (ICD-10-PCS; 2018-09-11)
PROC: 02HV33Z Insertion of Infusion Device into Superior Vena Cava, Percutaneous Approach (ICD-10-PCS; 2018-09-11)
PROC: B5181ZA Fluoroscopy of Superior Vena Cava using Low Osmolar Contrast, Guidance (ICD-10-PCS; 2018-09-11)
PROC: B548ZZA Ultrasonography of Superior Vena Cava, Guidance (ICD-10-PCS; 2018-09-11)
PROC: 30233N1 Transfusion of Nonautologous Red Blood Cells into Peripheral Vein, Percutaneous Approach (ICD-10-PCS; 2018-09-12)
DX: M00.011 Staphylococcal arthritis, right shoulder (principal); G93.41 Metabolic encephalopathy; L02.413 Cutaneous abscess of right upper limb; I69.354 Hemiplegia and hemiparesis following cerebral infarction affecting left non-dominant side; B95.62 Methicillin resistant Staphylococcus aureus infection as the cause of diseases classified elsewhere; D64.9 Anemia, unspecified; D72.819 Decreased white blood cell count, unspecified; E03.9 Hypothyroidism, unspecified; G30.9 Alzheimer's disease, unspecified; F02.80 Dementia in other diseases classified elsewhere, unspecified severity, without behavioral disturbance, psychotic disturbance, mood disturbance, and anxiety; F31.9 Bipolar disorder, unspecified; G89.29 Other chronic pain; M75.121 Complete rotator cuff tear or rupture of right shoulder, not specified as traumatic; R13.10 Dysphagia, unspecified; K21.9 Gastro-esophageal reflux disease without esophagitis; M25.411 Effusion, right shoulder; I12.9 Hypertensive chronic kidney disease with stage 1 through stage 4 chronic kidney disease, or unspecified chronic kidney disease; N18.3 Chronic kidney disease, stage 3 (moderate); Z79.890 Hormone replacement therapy; Z80.9 Family history of malignant neoplasm, unspecified; Z87.891 Personal history of nicotine dependence; Z98.1 Arthrodesis status; Z79.899 Other long term (current) drug therapy
CPT/HCPCS: 36415; 36558; 71045; 73030; 76937; 77001; 80053; 80202; 82948; 83605; 83735; 84443; 85025; 85027; 85610; 85651; 86140; 86703; 86885; 86900; 86901; 86920; 87040; 87070; 87075; 87077; 87102; 87186; 92616; 93005; 99285; A6222; A6449; A7000; A9270; C1751; C1894; G0378; J0690; J1170; J1630; J1650; J1885; J2001; J2060; J2250; J2704; J3010; J3370; J3490; J7030; J7120; P9016

== ENCOUNTER 2018-10-19 18:11 | Emergency (ER) | payer MEDICARE, MEDICAID ==
[~2018-10-19] VITALS: Ht 157.5 cm; Wt 54.0 kg
[~2018-10-19 18:11] MED LIST changes: -CEPH-572 PO; +CITA10TA9 PO; +GABA600T13 PO; +LEVO25TA7 PO; +OLAN10TA19 PO; +PRAV40TA3 PO; -SULF1TAB49 PO; +VALP250C44 PO
--- NOTE | 2018-10-19 18:35 | NUR ---
The tip that is open was cleansed very well with alcohol and then a sterile tagaderm applied over it to seal it off.
--- NOTE | 2018-10-19 19:00 | NUR ---
Dr Ramon took it all down to take pictures of it. It was again redressed. The line was just covered with a simple sterile 4x4 and then a sterile tagaderm. Apparently a nurse that specialises in these are coming in.
[2018-10-19 19:18] VITALS: BP 121/74
--- NOTE | 2018-10-19 19:55 | NUR ---
The RNs are here to look and fix the catheter.
--- NOTE | 2018-10-19 20:14 | NUR ---
RNs were able to fix the catheter.
== END 2018-10-19 22:15 ==
LOC: ER 18:12
DX: T82.514A Breakdown (mechanical) of infusion catheter, initial encounter (principal); Z79.899 Other long term (current) drug therapy; Y83.8 Other surgical procedures as the cause of abnormal reaction of the patient, or of later complication, without mention of misadventure at the time of the procedure; Y92.89 Other specified places as the place of occurrence of the external cause
CPT/HCPCS: 99283